=== PATIENT | male | born 1945 | race Hispanic/Latino ===

== ENCOUNTER 2017-11-28 16:10 | Observation (INO) | payer MEDICARE, OTHER ==
[~2017-11-28] VITALS: Ht 165.1 cm; Wt 72.6 kg
[2017-11-28 19:00] LABS: BASOPHILS % 0.4 % (0.0-1.0); EOSINOPHILS % 0.4 % (0.0-6.0); HEMATOCRIT 47.1 % (38.2-49.6); HEMOGLOBIN 15.7 g/dL (14.0-18.0); LYMPHOCYTES # (AUTO) 1.7 (1.0-3.2); LYMPHOCYTES % 15.7 % (18.0-39.1); MEAN CORPUSCULAR HEMOGLOBIN 30.9 pg (28-32); MEAN CORPUSCULAR HGB CONC 33.3 g/dL (31-35); MEAN CORPUSCULAR VOLUME 92.7 fL (81-99); MONOCYTES # (AUTO) 0.9 (0.2-0.8); MONOCYTES % 8.4 % (4.4-11.3); NEUTROPHILS % 74.6 % (38.7-80.0); PLATELET COUNT 315 x10e3/uL (140-360); RED BLOOD COUNT 5.08 x10e6/uL (4.3-5.7); RED CELL DISTRIBUTION WIDTH 12.6 % (11.7-14.4)
--- NOTE | 2017-11-28 19:07 | Diagnostic Imaging Report ---
EXAMINATION: CHEST SINGLE (PORTABLE) INDICATION: Chest pain COMPARISON: None FINDINGS: TUBES and LINES: None. LUNGS: Lungs are well inflated. Lungs are clear. There is no evidence of pneumonia or pulmonary edema. PLEURA: No pleural effusion or pneumothorax. HEART AND MEDIASTINUM: The cardiomediastinal silhouette is unremarkable. BONES AND SOFT TISSUES: No acute osseous lesion. Soft tissues are unremarkable. UPPER ABDOMEN: No free air under the diaphragm. IMPRESSION: No acute thoracic abnormality. Signed by: Dr. Harjinder Dave M.D. on 11/28/2017 7:04 PM
[2017-11-28 19:10] LABS: BILIRUBIN,URINE NEGATIVE (NEGATIVE); CLARITY,URINE CLEAR (CLEAR); COLOR,URINE YELLOW (YELLOW); KETONES,URINE NEGATIVE (NEGATIVE); LEUKOCYTE ESTERASE ,URINE NEGATIVE (NEGATIVE); NITRITE,URINE NEGATIVE (NEGATIVE); PROTEIN,URINE DIPSTICK NEGATIVE (NEGATIVE); URINE UROBILINOGEN 0.2 mg/dL (0.2 - 1)
[2017-11-28 19:13] LABS: INR 0.91; PROTHROMBIN TIME 12.7 seconds (11.9-14.5)
[2017-11-28 19:20] LABS: BACTERIA,URINE RARE /HPF; EPITHELIAL CELLS,URINE RARE /LPF; RBC,URINE 0-5 /HPF (0-5); WBC,URINE (MAN) 0-5 /HPF (0-5)
[2017-11-28 19:21] LABS: MUCUS,URINE MANY (RARE)
[2017-11-28 19:23] LABS: ALANINE AMINOTRANSFERASE 17 IU/L (0-55); ALBUMIN 3.6 g/dL (3.5-5.0); ALBUMIN/GLOBULIN RATIO 0.9 (0.8-2.0); ALKALINE PHOSPHATASE 80 IU/L (40-150); ANION GAP 13.1 mmol/L (8-16); BLOOD UREA NITROGEN 20 mg/dL (7-26); BUN/CREATININE RATIO 18 (6-25); CALCIUM 9.8 mg/dL (8.4-10.2); CARBON DIOXIDE 23 mmol/L (22-29); CHLORIDE 106 mmol/L (98-107); CREATINE KINASE 188 IU/L (30-200); CREATININE, SERUM 1.14 mg/dL (0.72-1.25); EST GLOMERULAR FILTRATION RATE > 60 ML/MIN (60-); GLUCOSE 103 mg/dL (74-118); POTASSIUM 4.1 mmol/L (3.5-5.1); SODIUM 138 mmol/L (136-145)
--- NOTE | 2017-11-28 21:07 | Diagnostic Imaging Report ---
EXAM: CT Chest WITH contrast 11/28/2017 7:40 PM INDICATION: Pulmonary embolism COMPARISON: 11/28/2017 TECHNIQUE: Chest was scanned utilizing a multidetector helical scanner from the lung apex through the level of the adrenal glands without administration of IV contrast. Coronal and sagittal reformations were obtained. Pulmonary embolism protocol was performed. IV CONTRAST: 100 mL of Isovue-370 RADIATION DOSE: Total DLP: 505.93 mGy*cm Estimated effective dose: (DLP x 0.014 x size factor) mSv COMPLICATIONS: None FINDINGS: LINES/ TUBES: None. LUNGS AND AIRWAYS: There is bibasilar atelectasis. There is a 1.2 cm nodule in the right middle lobe best seen on series 3, image 62 Airways are normal. PLEURA: The pleural spaces are clear. HEART AND MEDIASTINUM: The thyroid gland is normal. No mediastinal, hilar or axillary lymphadenopathy. The heart is normal in size.. There is no pericardial effusion. There are mild atherosclerotic calcifications in the aorta and coronary arteries. The pulmonary artery measures 2.5 cm in diameter, within normal limits. UPPER ABDOMEN: Limited non-contrast views of the upper abdomen show no abnormality within the visualized liver, spleen, pancreas, or kidneys. The adrenal glands are normal. BONES: The visualized bony thorax is within normal limits. SOFT TISSUES: Unremarkable. IMPRESSION: 1. No evidence of pulmonary embolism. 2. Pulmonary nodule in the right middle lobe, follow-up in [address] of the chest is recommended Signed by: Dr. Harjinder Dave M.D. on 11/28/2017 9:04 PM
[2017-11-28] MEDS ORDERED: MORPHINE SULFATE 5 MG/ML VIAL IV ONE (21:30)
[2017-11-28] MEDS ORDERED: ONDANSETRON HCL INJ 2 MG/ML VIAL IV PRN (23:00)
[2017-11-28] MEDS ORDERED: FAMOTIDINE 20 MG/2 ML VIAL IV SCH (23:00)
[2017-11-28] MEDS ORDERED: MORPHINE SULFATE 2 MG/ML SYR IV PRN (23:00)
[2017-11-28] MEDS ORDERED: SODIUM CHLORIDE FLUSH 10 ML SYR INJ PRN (23:00)
[2017-11-28] MEDS ORDERED: SODIUM CHLORIDE 0.9% 50ML 50 ML ONE (23:21)
[2017-11-28] MEDS ORDERED: IOPAMIDOL 370 MG/ML 200 ML INFUS..BTL INJ ONE (23:21)
[2017-11-29] MEDS ORDERED: KETOROLAC TROMETHAMINE 30 MG/ML VIAL IV STA (02:46)
[2017-11-29 03:18] LABS: CREATINE KINASE MB 0.7 ng/mL (0.00-5.00)
[2017-11-29 07:34] LABS: CHOL/HDL RATIO 3.6 (3.9-4.7)
[2017-11-29] MEDS ORDERED: ASPIRIN 81 MG ENTERIC COATED PO SCH (09:00)
--- NOTE | 2017-11-29 09:10 | History and Physical ---
PRIMARY CARE PHYSICIAN: Dr. Caden Munroe CHIEF COMPLAINT: Left flank pain with radiation to the left shoulder. HISTORY OF PRESENT ILLNESS: This is a 72-year-old man with no significant medical history, now developing left flank pain with radiation to his left shoulder. This has been ongoing for about 1 month. No other symptoms. He denies any nausea, vomiting or diarrhea. Denies any fever, chills or sweats. Therefore, he came to the hospital for further evaluation and management. PAST MEDICAL HISTORY: None. PAST SURGICAL HISTORY: Back surgery and shoulder surgery. ALLERGIES: PER ELECTRONIC MEDICAL RECORDS. FAMILY HISTORY/SOCIAL HISTORY: Patient is . He has 4 grown children. He drinks alcohol occasionally. No cigarette use. MEDICATIONS: Per electronic medical records. REVIEW OF SYSTEMS: Denies any dizziness or chest pain. PHYSICAL EXAMINATION VITAL SIGNS: Have been reviewed. GENERAL: A tired-appearing man resting in bed. HEENT: Anicteric. Pupils respond to light. No oral lesions. CARDIOVASCULAR: Normal S1 and S2. LUNGS: Moderate breath sounds. ABDOMEN: Soft, nontender and nondistended. No flank tenderness bilaterally. EXTREMITIES: No edema or calf tenderness. NEUROLOGICAL: Alert and oriented times 3. Moving all extremities. LABS: Reviewed. MEDICATIONS: Reviewed. ASSESSMENT AND PLAN: This is a 72-year-old man with: 1. Pulmonary nodule in the right middle lobe: Six month followup recommended. 2. Left flank pain with radiation to the left shoulder: Unclear etiology. Currently nontender. Possibly musculoskeletal pain. Will treat as musculoskeletal pain with meloxicam 7.5 mg daily. His renal function is normal. Alternatively, we can get a renal ultrasound as the patient is quite concerned at this time. 3. Overweight state: Body mass index 26.6. Will obtain a lipid panel. His glucose is 103. No need for hemoglobin A1c. Alternatively, the patient has had back surgery in the past, and this may be related to pathology of the vertebral column. Therefore, instead of renal ultrasound will get a computerized tomography scan of his back to evaluate his thoracolumbar spine. 4. Prophylaxis: Sequential compression devices. 5. Disposition: Obtain computerized tomography scan of the spine. If negative, the patient can be discharged home. Job#: [id number] GA
[2017-11-29] MEDS ORDERED: IBUPROFEN 400 MG TAB PO ONE (09:30)
--- NOTE | 2017-11-29 10:05 | Diagnostic Imaging Report ---
Examination: CT LUMBAR SPINE WITHOUT CONTRAST History: Back pain radiating down the left side the past few weeks. Back surgery x2. Comparison studies: None Technique: Axial images were obtained through the lumbar spine from T12. Coronal and sagittal reconstructions obtained from the axial data. Intravenous contrast: None Findings: The usual 5 non-rib bearing lumbar vertebral bodies are present. Alignment: Normal lordosis. No scoliosis. Soft tissues: Atherosclerotic calcification of the abdominal aorta. Residual contrast in the renal collecting system from chest CT performed November 28, 2017. Paraspinal muscles: No abnormalities Sacroiliac joints: Mild vacuum phenomenon. Vertebrae: No fractures, infection or neoplasm. Left midline inferior endplates was noted1. Bridging anterior osteophytosis from T12 through L3. Degenerative changes: L1-L2: Mild diffuse disc bulge. No foraminal or canal stenosis L2-L3: Small vacuum phenomenon. Asymmetric to the left disc bulge with superimposed left central disc osteophyte protrusion and bilateral facet arthropathy results in severe bilateral neural foraminal narrowing and severe canal stenosis. L3-L4: Diffuse disc bulge and mild bilateral facet arthropathy result in severe bilateral neural foraminal narrowing and mild canal stenosis. L4-L5: Degenerative grade I anterolisthesis. Prior decompressive laminectomies with intervertebral disc spacer and anterior and bilateral pedicle screws at L4. No lucency surrounding the hardware to suggest failure. Mild diffuse disc bulge. No foraminal narrowing. L5-S1: Prior decompressive laminectomies with anterior and bilateral pedicle screw placement at L5. No lucency surrounding the hardware to suggest failure. Diffuse disc bulge and bilateral facet arthropathy resulting in bilateral neural foraminal narrowing. IMPRESSION: 1. Degenerative changes from L1-L2 through L5-S1 with severe canal stenosis at L2-L3 and mild canal stenosis at L3-L4. 2. Severe bilateral neural foraminal narrowing at L2-L3 and L3-L4. 3. Degenerative grade 1 anterolisthesis of L4 on L5 with prior decompressive laminectomies from L4 through S1 and anterior and bilateral pedicle screw placement at L4 and L5. 4. No hardware failure. Signed by: Dr. Raeann Mitchell M.D. on 11/29/2017 10:01 AM
--- NOTE | 2017-11-29 10:10 | Diagnostic Imaging Report ---
Examination: CT Thoracic Spine without Contrast History: Back pain radiating down the left side the past few weeks. Back surgery x2. Comparison studies: None Technique: Axial images were reformatted obtained through the thoracic spine. Coronal and sagittal reconstructions obtained from the axial data. Intravenous contrast: None Findings: Alignment: Normal kyphosis. No scoliosis. Soft tissues: No abnormalities. Paraspinal muscles: No abnormalities Vertebrae: Hemangiomata of T3-T10. No fractures, infection or neoplasm. Degenerative changes: Anterior osteophytosis from T5 through T12. Mild bilateral facet arthropathy at T10-T11 and T11-T12 with mild bilateral foraminal stenosis. No degenerative disc or canal stenosis. Visualized lung apices: Bibasilar atelectasis. IMPRESSION: 1. No degenerative disc or canal stenosis. 2. Mild degenerative changes from T10-T11 through T11-T12 with mild bilateral foraminal stenosis. 3. 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 Signed by: Dr. Raeann Mitchell M.D. on 11/29/2017 10:06 AM
[2017-11-30] MEDS ORDERED: MELOXICAM 7.5 MG TAB PO SCH (13:30)
--- OUTSIDE RECORDS SUMMARY | 2017-12-16 15:17 | XMS REPORT ---
Author Author [facility] Address Unknown Phone Unavailable Care Team Providers Care Commercial Construction Superintendent Name Role Phone GUIDO DONALD Unavailable Unavailable Problems This patient has no known problems. Allergies, Adverse Reactions, Alerts This patient has no known allergies or adverse reactions. Medications This patient has no known medications. Results Test Description Test Time Test Comments Text Results Atomic Results Result Comments CT LUMBAR SPINE WO [place] [address] Patient Name: DWAINE JACOBSON MR #: [id number] : 1945 Age/Sex: 72/M Req #: [id number] Adm Physician: GUIDO DONALD MD Ordered by: OLLIE GARCIA MD Report #: [id number] Location: [facility] Room/Bed: [place] [address] Procedure: [id number] CT/CT LUMBAR SPINE WO Exam Date: Exam Time: 0855 REPORT STATUS: Signed Examination: CT LUMBAR SPINE WITHOUT CONTRAST History: Back pain radiating down the left side the past few weeks. Back surgery x2. Comparison studies: None Technique: Axial images were obtained through the lumbar spine from T12. Coronal and sagittal reconstructions obtained from the axial data. Intravenous contrast: None Findings: The usual 5 non -rib bearing lumbar vertebral bodies are present. Alignment: Normal lordosis. No scoliosis. Soft tissues: Atherosclerotic calcification of the abdominal aorta. Residual contrast in the renal collecting system from chest CT performed November 28, 2017. Paraspinal muscles: No abnormalities Sacroiliac joints: Mild vacuum phenomenon. Vertebrae: No fractures, infection or neoplasm. Left midline inferior endplates was noted1. Bridging anterior osteophytosis from T12 through L3. Degenerative changes: L1- L2: Mild diffuse disc bulge. No foraminal or canal stenosis L2-L3: Small vacuum phenomenon. Asymmetric to the left disc bulge with superimposed left central disc osteophyte protrusion and bilateral facet arthropathy results in severe bilateral neural foraminal narrowing and severe canal stenosis. L3-L4: Diffuse disc bulge and mild bilateral facet arthropathy result in severe bilateral neural foraminal narrowing and mild canal stenosis. L4-L5: Degenerative grade I anterolisthesis. Prior decompressive laminectomies with intervertebral disc spacer and anterior and bilateral pedicle screws at L4. No lucency surrounding the hardware to suggest failure. Mild diffuse disc bulge. No foraminal narrowing. L5-S1 : Prior decompressive laminectomies with anterior and bilateral pedicle screw placement at L5. No lucency surrounding the hardware to suggest failure. Diffuse disc bulge and bilateral facet arthropathy resulting in bilateral neural foraminal narrowing. IMPRESSION: 1. Degenerative changes from L1-L2 through L5-S1 with severe canal stenosis at L2-L3 and mild canal stenosis at L3-L4. 2. Severe bilateral neural foraminal narrowing at L2- L3 and L3-L4. 3. Degenerative grade 1 anterolisthesis of L4 on L5 with prior decompressive laminectomies from L4 through S1 and anterior and bilateral pedicle screw placement at L4 and L5. 4. No hardware failure. Signed by: Dr. Raeann Mitchell M.D. on 11/29/2017 10:01 AM Dictated By: RAEANN HARRISON MD 1001 Transcribed By: LOVE on 11/29/17 1001 COPY TO: OLLIE GARCIA MD CT THORACIC SPINE WO [place] [address] Patient Name: DWAINE JACOBSON MR #: [id number] : 1945 Age/Sex: 72/M Req #: [id number] Adm Physician: GUIDO DONALD MD Ordered by: OLLIE GARCIA MD Report #: [id number] Location: [facility] Room/Bed: [place] [address] Procedure: [id number] CT/CT THORACIC SPINE WO Exam Date: 11/29/17 Exam Time: 0855 REPORT STATUS: Signed Examination: CT Thoracic Spine without Contrast History: Back pain radiating down the left side the past few weeks. Back surgery x2. Comparison studies: None Technique: Axial images were reformatted obtained through the thoracic spine. Coronal and sagittal reconstructions obtained from the axial data. Intravenous contrast: None Findings: Alignment: Normal kyphosis. No scoliosis. Soft tissues: No abnormalities. Paraspinal muscles: No abnormalities Vertebrae: Hemangiomata of T3- T10. No fractures, infection or neoplasm. Degenerative changes: Anterior osteophytosis from T5 through T12. Mild bilateral facet arthropathy at T10-T11 and T11-T12 with mild bilateral foraminal stenosis. No degenerative disc or canal stenosis. Visualized lung apices: Bibasilar atelectasis. IMPRESSION: 1. No degenerative disc or canal stenosis. 2. Mild degenerative changes from T10-T11 through T11-T12 with mild bilateral foraminal stenosis. 3. 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 Signed by: Dr. Raeann Mitchell M.D. on 11/29/2017 10:06 AM Dictated By: RAEANN HARRISON MD 1006 Transcribed By: LOVE on 11/29/17 1006 COPY TO: OLLIE GARCIA MD CT CHEST W [place] [address] Patient Name: DWAINE JACOBSON MR #: [id number] : 1945 Age/Sex: 72/M Req # : [id number] Adm Physician: Ordered by: WILLOW MIRAMONTES NP Report #: [id number] Location: ER Room/Bed: Procedure: [id number] CT/CT CHEST W Exam Date: 11/28/17 Exam Time: 2028 REPORT STATUS: Signed EXAM: CT Chest WITH contrast 11/28/2017 7:40 PM INDICATION: Pulmonary embolism COMPARISON: 11/28/2017 TECHNIQUE: Chest was scanned utilizing a multidetector helical scanner from the lung apex through the level of the adrenal glands without administration of IV contrast. Coronal and sagittal reformations were obtained. Pulmonary embolism protocol was performed. IV CONTRAST: 100 mL of Isovue-370 RADIATION DOSE: Total DLP: 505.93 mGy*cm Estimated effective dose : (DLP x 0.014 x size factor) mSv COMPLICATIONS: None FINDINGS : LINES/ TUBES: None. LUNGS AND AIRWAYS: There is bibasilar atelectasis. There is a 1.2 cm nodule in the right middle lobe best seen on series 3, image 62 Airways are normal. PLEURA: The pleural spaces are clear. HEART AND MEDIASTINUM: The thyroid gland is normal. No mediastinal , hilar or axillary lymphadenopathy. The heart is normal in size.. There is no pericardial effusion. There are mild atherosclerotic calcifications in the aorta and coronary arteries. The pulmonary artery measures 2.5 cm in diameter, within normal limits. UPPER ABDOMEN: Limited non-contrast views of the upper abdomen show no abnormality within the visualized liver, spleen, pancreas, or kidneys. The adrenal glands are normal. BONES: The visualized bony thorax is within normal limits. SOFT TISSUES: Unremarkable. IMPRESSION: 1. No evidence of pulmonary embolism. 2. Pulmonary nodule in the right middle lobe, follow-up in [address] of the chest is recommended Signed by: Dr. Harjinder Dave M.D. on 11/28/2017 9 :04 PM Dictated By: HARJINDER HARVEY MD 03 Transcribed By: LOVE on 11/28/172103 COPY TO: WILLOW MIRAMONTES NP CHEST SINGLE (PORTABLE) [place] [address] Patient Name: DWAINE JACOBSON MR #: [id number] : 1945 Age/Sex: 72/M Req #: [id number] Adm Physician: Ordered by: WILLOW MIRAMONTES NP Report #: [id number] Location: ER Room/Bed: Procedure: [id number] DX/CHEST SINGLE (PORTABLE) Exam Date: 11/28/17 Exam Time: 1730 REPORT STATUS: Signed EXAMINATION: CHEST SINGLE (PORTABLE) INDICATION: Chest pain COMPARISON: None FINDINGS: TUBES and LINES: None. LUNGS: Lungs are well inflated. Lungs are clear. There is no evidence of pneumonia or pulmonary edema. PLEURA: No pleural effusion or pneumothorax. HEART AND MEDIASTINUM: The cardiomediastinal silhouette is unremarkable. BONES AND SOFT TISSUES: No acute osseous lesion. Soft tissues are unremarkable. UPPER ABDOMEN: No free air under the diaphragm. IMPRESSION: No acute thoracic abnormality. Signed by: Dr. Harjinder Dave M.D. on 11/28/2017 7:04 PM Dictated By: HARJINDER HARVEY MD 03 COPY TO: WILLOW MIRAMONTES NP
--- OUTSIDE RECORDS SUMMARY | 2017-12-16 15:17 | XMS REPORT | Clinical Summary ---
Author Author [facility] Address Unknown Phone Unavailable Care Team Providers Care Lamp Decorator Name Role Phone Caden Jacobson MD PCP Allergies No Known Allergies Current Medications Prescription Sig. Disp. Refills Start End Date Status Date ATORVASTATIN CALCIUM Take by mouth. Active (ATORVASTATIN ORAL) atorvastatin (LIPITOR) 40 07/30/20 Active MG tablet 16 Active Problems Problem Noted Date Osteoarthritis of left knee 08/17/2016 Family History Medical History Relation Name Comments No Known Problems Father Diabetes Mother Relation Name Status Comments Father Mother Social History Tobacco Use Types Packs/Day Years Used Date Never Smoker Alcohol Use Drinks/Week oz/Week Comments Yes 6 Standard 3.6 drinks or equivalent Sex Assigned at Date Recorded Not on file Last Filed Vital Signs Not on file Plan of Treatment Health Maintenance Due Date Last Done Comments COLONOSCOPY 1996 ZOSTER VACCINE 2006 PNEUMOCOCCAL 2011 POLYSACCHARIDE VACCINE AGE 65 AND OVER PNEUMOCOCCAL-13 2011 INFLUENZA VACCINE 06/08/2017 Results Not on fileafter 12/15/2016 Insurance Payer Benefit Subscriber ID Type Phone Address Plan / Group MEDICARE MEDICARE [id number] Medicare [place], [place] PART A AND B CIGNA CIGNA [id number] [place] [address]
== END 2017-11-29 11:12 | disposition home or self-care (01) ==
LOC: ER 16:10 → ERHOLD 22:55 → UNDOADMOB 23:28
PROVIDERS: ADMIT Internal Medicine; ATTEND Internal Medicine
DX: R07.9 Chest pain, unspecified (principal); R91.1 Solitary pulmonary nodule; R10.9 Unspecified abdominal pain; M25.512 Pain in left shoulder; E66.9 Obesity, unspecified; Z68.26 Body mass index [BMI] 26.0-26.9, adult
CPT/HCPCS: 36415 ×2; 71010; 71260; 72128; 72131; 80053; 80061; 81001; 82550 ×2; 82553 ×2; 84484 ×2; 85025; 85379; 85610; 85730; 87086; 87400; 93005; 99284; G0378 ×2; J1885; J2270; Q9967; 71045

== ENCOUNTER 2018-09-22 19:25 | Emergency (ER) | payer MEDICARE, OTHER ==
[~2018-09-22] VITALS: Ht 165.1 cm; Wt 72.6 kg
[~2018-09-22 19:25] MED LIST changes: -BACITRACIN 50,000 UNIT VIAL ONE; -CEFTRIAXONE SOD 1 GM VIAL ONE; -DEXAMETHASONE SOD PHOS INJ 4 MG/ML VIAL ONE; -EPHEDRINE SULFATE INJ 50 MG/10 ML SYR ONE; -FENTANYL CITRATE/PF 100MCG/2 ML INJ ONE; -LIDOCAINE HCL 1% 30ML-PF VIAL ONE; -LIDOCAINE HCL 2% LOCAL INJ 5 ML SDV VIAL INJ ONE; -MIDAZOLAM HCL 2 MG/2 ML VIAL ONE; -ONDANSETRON HCL INJ 2 MG/ML VIAL ONE; -PHENYLEPHRINE HCL 1% 10 MG/ML VIAL ONE; -PROPOFOL IV EMULSION 10 MG/ML 20 ML VIAL ONE; -SEVOFLURANE INHAL SOLN 250 ML PEN BTL ONE
--- OUTSIDE RECORDS SUMMARY | 2018-09-22 19:29 | XMS REPORT | Clinical Summary ---
Author Author [facility] Address Unknown Phone Unavailable Care Team Providers Care Disability Examiner Name Role Phone Caden Munroe MD PCP [...] Plan / Group MEDICARE MEDICARE xxxxxxxxxx Medicare [place], [place] PART A AND B CIGNA CIGNA xxxxxxxxxxx Indemnity INDEMNITY (Home) [place] [address]
== END 2018-09-22 19:57 | disposition left against medical advice (07) ==
LOC: ER 19:25
DX: Z48.01 Encounter for change or removal of surgical wound dressing (principal)

== ENCOUNTER → 2018-09-22 | Day surgery (SDC) | payer MEDICARE, OTHER ==
[2018-09-19 12:15] LABS: BASOPHILS % 0.5 % (0.0-1.0); EOSINOPHILS # (AUTO) 0.1 (0.0-0.4); EOSINOPHILS % 1.3 % (0.0-6.0); HEMATOCRIT 50.2 % (38.2-49.6); LYMPHOCYTES # (AUTO) 1.6 (1.0-3.2); LYMPHOCYTES % 20.4 % (18.0-39.1); MEAN CORPUSCULAR HEMOGLOBIN 32.5 pg (28-32); MEAN CORPUSCULAR HGB CONC 33.9 g/dL (31-35); MONOCYTES # (AUTO) 0.6 (0.2-0.8); MONOCYTES % 7.5 % (4.4-11.3); NEUTROPHILS # (AUTO) 5.3 (2.1-6.9); NEUTROPHILS % 69.8 % (38.7-80.0); PLATELET COUNT 214 x10e3/uL (140-360); RED BLOOD COUNT 5.23 x10e6/uL (4.3-5.7)
[2018-09-19 12:28] LABS: ANION GAP 14.2 mmol/L (8-16); BLOOD UREA NITROGEN 20 mg/dL (7-26); BUN/CREATININE RATIO 18 (6-25); CARBON DIOXIDE 27 mmol/L (22-29); CHLORIDE 103 mmol/L (98-107); CREATININE, SERUM 1.14 mg/dL (0.72-1.25); EST GLOMERULAR FILTRATION RATE > 60 ML/MIN (60-); GLUCOSE 100 mg/dL (74-118); POTASSIUM 5.2 mmol/L (3.5-5.1); SODIUM 139 mmol/L (136-145)
--- NOTE | 2018-09-19 12:50 | Diagnostic Imaging Report ---
EXAM: XR CHEST 2 VIEWS DATE: 09/19/2018 11:59 AM INDICATION: Preop, pain COMPARISON: 11/28/2017 CT chest, no report available FINDINGS: Lines and Tubes: None Heart and Mediastinum: No acute cardiomediastinal findings. Lungs and Pleura: No significant pleural effusion, pneumothorax, or focal consolidation. CT demonstrated right basilar nodule not radiographically apparent. Bones and Soft Tissues: No acute findings. IMPRESSION: 1. CT demonstrated right basilar nodule not radiographically apparent. CT follow-up recommended. Signed by: Dr. Xavi Ricketts MD on 09/19/2018 12:46 PM
[~2018-09-22] MED LIST: ATORVASTATIN PO; BACITRACIN 50,000 UNIT VIAL ONE; CEFTRIAXONE SOD 1 GM VIAL ONE; DEXAMETHASONE SOD PHOS INJ 4 MG/ML VIAL ONE; EPHEDRINE SULFATE INJ 50 MG/10 ML SYR ONE; FENTANYL CITRATE/PF 100MCG/2 ML INJ ONE; LIDOCAINE HCL 1% 30ML-PF VIAL ONE; LIDOCAINE HCL 2% LOCAL INJ 5 ML SDV VIAL INJ ONE; MIDAZOLAM HCL 2 MG/2 ML VIAL ONE; ONDANSETRON HCL INJ 2 MG/ML VIAL ONE; PHENYLEPHRINE HCL 1% 10 MG/ML VIAL ONE; PROPOFOL IV EMULSION 10 MG/ML 20 ML VIAL ONE; SEVOFLURANE INHAL SOLN 250 ML PEN BTL ONE
--- OUTSIDE RECORDS SUMMARY | 2018-09-22 06:16 | XMS REPORT | Clinical Summary ---
Author Author [facility] Address Unknown Phone Unavailable Care Team Providers Care Zinc Plater Name Role Phone Caden Munroe MD PCP Allergies No Known Allergies Medications End Date Status Medication Sig Dispensed Refills Start Date Active ATORVASTATIN CALCIUM Take by 0 (ATORVASTATIN ORAL) mouth. Active atorvastatin (LIPITOR) 40 0 07/30/201 MG tablet 6 Active Problems Problem Noted Date Osteoarthritis of left knee 08/17/2016 Family History Medical History Relation Name Comments No Known Problems Father Diabetes Mother Relation Name Status Comments Father Mother Social History Date Tobacco Use Types Packs/Day Years Used Never Smoker Alcohol Use Drinks/Week oz/Week Comments Yes 6 Standard 3.6 drinks or equivalent Sex Assigned at Date Recorded Not on file Industry Job Start Date Occupation Not on file Not on file Not on file Travel End Travel History Travel Start No recent travel history available. Last Filed Vital Signs Not on file Plan of Treatment Health Maintenance Due Date Last Done Comments COLON CANCER SCREENING 1996 SHINGRIX VACCINE (1 of 2) 1996 ZOSTER VACCINE 2006 PNEUMOCOCCAL 2011 POLYSACCHARIDE VACCINE AGE 65 AND OVER PNEUMOCOCCAL-13 2011 INFLUENZA VACCINE 06/08/2018 Results Not on fileafter 09/21/2017 Insurance Payer Benefit Subscriber ID Type Phone Address Plan / Group MEDICARE MEDICARE xxxxxxxxxx Medicare [place], [place] PART A AND B CIGNA CIGNA xxxxxxxxxxx Indemnity INDEMNITY (Home) [place] [address]
[2018-09-22 11:20] VITALS: BP 142/93
--- NOTE | 2018-09-22 11:36 | Operative Report ---
DATE OF PROCEDURE: September 22, 2018 PREOPERATIVE DIAGNOSIS: Erectile dysfunction. POSTOPERATIVE DIAGNOSES: Erectile dysfunction. PROCEDURE PERFORMED: Insertion of inflatable penile prosthesis. ANESTHESIA: General anesthesia. ESTIMATED BLOOD LOSS: 50 mL. INDICATIONS: Mr. Michael Munroe is a 72-year-old gentleman with long history of erectile dysfunction which has failed all conservative therapies. He now presents for definitive surgical management of his problem. PROCEDURE IN DETAIL: The patient was brought into the operating room and placed in supine position and after administration of general anesthesia, he was prepped and draped in the usual sterile fashion. A Puentes catheter was placed and the bladder drained. The catheter was kept clamped for the remainder of the procedure. A penoscrotal incision was made sharply and dissection was carried out through the layers of the penis. Once it was dissected free, a corporotomy incision was made first on the right side and subsequently on the left side. The cavernosa bodies were noted to have significant fibrosis more so on the left than on the right, but there was minimal bleeding noted from the procedure. Both corporal bodies were dilated proximally and distally and were noted to measure a total of 19 cm in length. The corporal bodies were each dilated up to 11 and a 16 cm CXR with 3 cm RTE was placed on both sides. There were no complications or problems with patient in the cavernosa bodies in either location. The cavernosal incision was then closed using PDS stitches which were placed prior to the corporal bodies being placed. A separate horizontal incision was made over the right lower abdomen and the dissection was carried out to the layers of the abdomen. A horizontal incision was made across the fascia and a subrectus pouch was created. The reservoir was placed in this location after placement of Lidocaine into that area. The reservoir was then filled with 95 mL of fluid and tubing was allowed to exit from a separate stab incision inferior to the incision. Prior to inflating the reservoir, the fascial incision was closed using a running Vicryl suture. A subdartos pocket was placed in the scrotum and a pump placed in this position such that the button was anterior. A knitting needle was then used to carry the tube exiting the pump up to the right groin. Quick connect method was used to connect the reservoir to the pump. The device was cycled and was noted to have good rigidity. The wounds were all copiously irrigated with antibiotic solution and closed in layers. Skin was being closed with subcuticular stitch bilaterally. The wound was then cleaned and dried and then covered with Mastisol, Steri-Strips, and a sterile Tegaderm dressing. Anesthesia was reversed and the patient was transferred to a bed and taken to the postanesthesia care unit in good condition. The Puentes catheter was removed prior to extubation. Job#: [id number] VAS
== END | disposition home or self-care (01) ==
LOC: OR 06:13
PROVIDERS: ATTEND Urology
DX: N52.9 Male erectile dysfunction, unspecified (principal); E29.1 Testicular hypofunction; I49.3 Ventricular premature depolarization; Z01.810 Encounter for preprocedural cardiovascular examination; Z01.812 Encounter for preprocedural laboratory examination; Z01.818 Encounter for other preprocedural examination
CPT/HCPCS: 36415; 54401; 71046; 80048; 85025; 93005; C1813; J0696; J1100; J2001 ×2; J2250; J2370; J2405; J2704

== ENCOUNTER → 2019-03-23 | Day surgery (SDC) | payer MEDICARE, OTHER ==
[2019-02-07 10:52] LABS: BASOPHILS # (AUTO) 0.1 (0.0-0.1); EOSINOPHILS % 0.8 % (0.0-6.0); HEMATOCRIT 46.4 % (38.2-49.6); HEMOGLOBIN 15.4 g/dL (14.0-18.0); LYMPHOCYTES # (AUTO) 1.5 (1.0-3.2); MEAN CORPUSCULAR HEMOGLOBIN 31.2 pg (28-32); MEAN CORPUSCULAR HGB CONC 33.2 g/dL (31-35); MEAN CORPUSCULAR VOLUME 93.9 fL (81-99); MONOCYTES # (AUTO) 0.4 (0.2-0.8); MONOCYTES % 8.5 % (4.4-11.3); NEUTROPHILS # (AUTO) 3.2 (2.1-6.9); NEUTROPHILS % 60.5 % (38.7-80.0); PLATELET COUNT 226 x10e3/uL (140-360); RED BLOOD COUNT 4.94 x10e6/uL (4.3-5.7); RED CELL DISTRIBUTION WIDTH 13.3 % (11.7-14.4)
--- NOTE | 2019-02-07 11:14 | Diagnostic Imaging Report ---
EXAMINATION: PA and lateral views of the chest. COMPARISON: 02/07/2019 CLINICAL HISTORY: Preoperative study for urological procedure DISCUSSION: The lungs are well-inflated. No focal airspace consolidation, pleural effusion, or pneumothorax. Right middle lobe pulmonary nodule described on CT chest 11/28/2017 is not visualized radiographically. Cardiomediastinal contour and pulmonary vasculature are within normal limits. No acute osseous abnormality. IMPRESSION: No acute cardiopulmonary abnormalities. Signed by: Dr. Charles Kent M.D. on 02/07/2019 11:11 AM
[2019-03-20 15:41] LABS: BASOPHILS % 0.5 % (0.0-1.0); EOSINOPHILS % 0.3 % (0.0-6.0); HEMATOCRIT 51.9 % (38.2-49.6); HEMOGLOBIN 17.1 g/dL (14.0-18.0); LYMPHOCYTES # (AUTO) 1.1 (1.0-3.2); LYMPHOCYTES % 13.6 % (18.0-39.1); MEAN CORPUSCULAR HEMOGLOBIN 31.5 pg (28-32); MEAN CORPUSCULAR HGB CONC 32.9 g/dL (31-35); MEAN CORPUSCULAR VOLUME 95.6 fL (81-99); MONOCYTES # (AUTO) 0.5 (0.2-0.8); MONOCYTES % 6.1 % (4.4-11.3); NEUTROPHILS # (AUTO) 6.3 (2.1-6.9); PLATELET COUNT 247 x10e3/uL (140-360); RED BLOOD COUNT 5.43 x10e6/uL (4.3-5.7); RED CELL DISTRIBUTION WIDTH 13.3 % (11.7-14.4)
[2019-03-20 15:57] LABS: ANION GAP 12.5 mmol/L (8-16); BLOOD UREA NITROGEN 25 mg/dL (7-26); BUN/CREATININE RATIO 24 (6-25); CALCIUM 10.2 mg/dL (8.4-10.2); CARBON DIOXIDE 27 mmol/L (22-29); CHLORIDE 103 mmol/L (98-107); CREATININE, SERUM 1.05 mg/dL (0.72-1.25); EST GLOMERULAR FILTRATION RATE > 60 ML/MIN (60-); GLUCOSE 94 mg/dL (74-118); POTASSIUM 4.5 mmol/L (3.5-5.1); SODIUM 138 mmol/L (136-145)
[~2019-03-23] MED LIST changes: +ATORVASTATIN CA10 MG PO; +BACITRACIN 50,000 UNIT VIAL ONE; +CEFTRIAXONE SOD 1 GM/NS 50 ML 50 ML IV ONE; +DEXAMETHASONE SOD PHOS INJ 4 MG/ML VIAL ONE; +FENTANYL CITRATE/PF 100MCG/2 ML INJ ONE; +LIDOCAINE HCL 1% LOCAL INJ 20 ML VIAL ONE; +LIDOCAINE HCL 2% LOCAL INJ 5 ML SDV VIAL INJ ONE; +MIDAZOLAM HCL 2 MG/2 ML VIAL ONE; +MORPHINE SULFATE INJ 10 MG/ML ONE; +ONDANSETRON HCL INJ 2MG/ML 2ML 2 MG/ML VIAL ONE; +PROPOFOL IV EMULSION 10 MG/ML 20 ML VIAL ONE; +SEVOFLURANE INHAL SOLN 250 ML PEN BTL ONE
--- OUTSIDE RECORDS SUMMARY | 2019-03-23 07:06 | XMS REPORT | Clinical Summary ---
Author Author [facility] Organization [facility] Address Unknown Phone Unavailable Care Team Providers Care Track Moving Machine Operator Name Role Phone Caden Munroe MD PCP [...] Last Done Comments COLON CANCER SCREENING 1996 SHINGLES VACCINES (#1) 1996 65+ PNEUMOCOCCAL VACCINE 2011 (1 of 2 - PCV13) PNEUMOCOCCAL 2011 POLYSACCHARIDE VACCINE AGE 65 AND OVER INFLUENZA VACCINE 06/08/2019 Results Not on fileafter 03/22/2018 Insurance Payer Benefit Subscriber ID Type Phone Address Plan / Group MEDICARE MEDICARE xxxxxxxxxx Medicare [place], [place] PART A AND B CIGNA CIGNA xxxxxxxxxxx Indemnity INDEMNITY (Home) [place] [address]
[2019-03-23 13:50] VITALS: BP 148/88
--- NOTE | 2019-03-28 02:41 | Operative Report ---
DATE OF PROCEDURE: 03/23/2019 SURGEON: Saul Hagen MD PREOPERATIVE DIAGNOSIS: Malfunction of inflatable penile prosthesis. POSTOPERATIVE DIAGNOSIS: Malfunction of inflatable penile prosthesis. OPERATIVE PROCEDURE: Removal and replacement of inflatable penile prosthesis. ANESTHESIA: General anesthesia. ESTIMATED BLOOD LOSS: Less than 100 mL. INDICATION: Mr. Michael Munroe is a 73-year-old gentleman, who previously had a placement of the inflatable penile prosthesis. Despite adequate healing, he is unable to inflate the pump and the pump bulb appears constricted. He now presents for management of this problem. PROCEDURE IN DETAIL: The patient was brought into the operating room, placed in supine position. After administration of general anesthesia, was prepped and draped in the usual sterile fashion. A Puentes catheter was placed and the balloon inflated. An incision was first made in the right lower abdomen at the site of his prior reservoir placement. Dissection was carried out through the layers of the abdomen. A horizontal incision was made over the rectus fascia and subrectus pouch was entered. This area appeared to be somewhat constricted and it seemed that the previously placed reservoir was somewhat bent and incompletely filled. It was removed with minimal difficulty. Great care was taken removing its tubing and quick connect as well. A penoscrotal incision was then made sharply and dissection was carried up to the layers of the penis and all of the tubing was followed to both corporal bodies, which were incised and the old corporal bodies were removed. These were noted to be somewhat inflated and intact. There was no obvious leak noted in this location. The corporal bodies were then copiously irrigated with antibiotic solution, particularly using a 14-Lith[place]ian red rubber catheter to get deep in the proximal ends of the corporal bodies. The corporal bodies were then remeasured and found to be approximately 20 cm on each side. The subdartos pocket that previously held the scrotal pump was opened and the pump was removed. The cavity in which the pump sat was noted to be somewhat scarred and constricted preventing the pump from filling in its entirety. There is also the presence of some air seen in the system. The subdartos pocket was therefore extended and a new pump was placed in this location. Fresh cylinders were placed on both sides in the corporal body and these were found to be 20 cm in length. A 16 cm with 4 cm RTEs on both sides. The corporal bodies were then closed using a running PDS stitch. Inflation on the table was noted to produce a good result. Once the old reservoir was removed, a fresh reservoir was placed of balloon size and this was filled with 65 mL of fluid. The reservoir and the pump were connected using the quick connect method in standard fashion. The device was cycled and there was good inflation and deflation noted. There was no obvious air seen anywhere in the new system. Both wounds were then copiously irrigated with antibiotic solution and closed in multiple layers to prevent infection and to separate the tubes. The skin was closed with subcuticular stitch. The wounds were then cleaned and dried and covered with Mastisol, Steri-Strips, Telfa, and Tegaderm dressing. The Puentes catheter was removed. Anesthesia was reversed and the patient was transferred to a bed and taken to the postanesthesia care unit in good condition. Of note, the needle and instrument count were correct at the conclusion of the case. MD SHANTELL Mccarty/MEGAN /[id number]
== END | disposition home or self-care (01) ==
LOC: EEVIPCON 02-09 09:00 → OR 07:01
PROVIDERS: ATTEND Urology
DX: T83.490A Other mechanical complication of implanted penile prosthesis, initial encounter (principal); N52.9 Male erectile dysfunction, unspecified; Y83.8 Other surgical procedures as the cause of abnormal reaction of the patient, or of later complication, without mention of misadventure at the time of the procedure; Z01.810 Encounter for preprocedural cardiovascular examination; Z01.812 Encounter for preprocedural laboratory examination; Z01.818 Encounter for other preprocedural examination
CPT/HCPCS: 36415 ×2; 54416; 71046; 80048; 85025 ×2; 88300; 93005 ×2; C1813 ×2; J0696; J1100; J2001 ×2; J2250; J2270; J2405; J2704